=== PATIENT | male | born 1975 | race Caucasian/White ===

== ENCOUNTER 2016-10-26 23:40 | Emergency (ER) | payer SELFPAY ==
[2016-10-26 23:56] VITALS: BP 129/68
== END 2016-10-27 02:01 | disposition home or self-care (01) ==
LOC: ED 23:40
DX: F20.9 Schizophrenia, unspecified (principal); F17.200 Nicotine dependence, unspecified, uncomplicated; Z76.0 Encounter for issue of repeat prescription